=== PATIENT | male | born 1990 | race Caucasian/White ===

== ENCOUNTER 2021-10-16 17:32 | Emergency (ER) | payer OTHER, SELFPAY ==
--- NOTE | ~2021-10-16 | XR_ITS ---
XR hand RT min 3V DATE: 10/16/2021 17:51 INDICATION: Right hand pain TECHNIQUE: 3 views COMPARISON: None FINDINGS: No fracture or dislocation, periosteal reaction or bone destruction, erosive change or vera drocalcinosis. Joint spaces are preserved. IMPRESSION: Negative Reviewed, dictated and finalized at location A. IMPRESSION: Negative
[2021-10-16 17:34] VITALS: BP 146/79; PULSE 98; RESP 18; TEMP 36.8; O2SAT 100
--- NOTE | 2021-10-16 18:23 | ED_ITS ---
HPI - Extremity Injury (Upper) General Chief Complaint: Extremity Injury, Upper Stated Complaint: hand pain Time Seen by Provider: 10/16/21 17:39 Source: RN notes reviewed History of Present Illness HPI narrative: Patient presents emergency room from home for right hand pain. Patient states that 2 days ago he was working on his car when the brown came down and smashed his hand between the brown and his engine patient notes pain over his right dorsal hand at the base of the third digit he denies any other trauma or injury denies any numbness or tingling states it does hurt to make a full fist but is able to make a full fist Related Data Allergies Allergy/AdvReac Type Severity Reaction Status Date / Time No Known Drug Allergies Allergy Unknown none Verified 09/22/17 08:55 Review of Systems Review of Systems: Gen.: Denies fevers or chills Musculoskeletal: See HPI Neuro: Denies numbness, tingling, weakness Skin: Denies rash Endo: Denies DM PMFSH Past Medical History Medical History (Updated 10/16/21 @ 18:26 by Jason Elise DO) Patient denies significant medical history Social History Social History Smoking status: Former smoker Smoking end date: 07/11/14 Exam Narrative: APPEARANCE: No acute distress, nontoxic, resting in bed Eyes: EOMI HEENT: Normocephalic, atraumatic, RESPIRATORY: No respiratory distress MUSCULOSKELETAl: Tender palpation of the right dorsal hand at the base of the third digit over the MCP joint, mild swelling no ecchymosis full flexion- extension of all 5 MCP and IP joints, radial pulse 2+ neurovascular intact NEURO: Awake and alert. Following commands, speech normal, no focal deficits SKIN:: Warm, dry. Normal Color no rash or lesions Course Course Emergency Course: Discussed with patient results of workup and diagnosis. Discussed need for follow-up with primary care, proper use of medication, and reasons to return to the emergency department. Patient understands and agrees to current treatment plan Vital Signs Vital signs: Vital Signs Temperature 98.2 F 10/16/21 17:34 Pulse Rate 98 10/16/21 17:34 Respiratory Rate 18 10/16/21 17:34 Blood Pressure 146/79 H 10/16/21 17:34 Pulse Oximetry 100 10/16/21 17:34 Temperature 98.2 F 10/16/21 17:34 Pulse Rate 98 10/16/21 17:34 Respiratory Rate 18 10/16/21 17:34 Blood Pressure 146/79 H 10/16/21 17:34 Pulse Oximetry 100 10/16/21 17:34 MDM - Extremity Injury (Upper) Imaging Data Radiologist's impression: ITS Impressions Hand X-Ray 10/16/21 18:12 IMPRESSION: Negative Discharge Plan Discharge Clinical Impression: Contusion of hand, right Patient Disposition: Home, Self-Care Condition: Stable Instructions: Antibiotic Form, Crush Injury (ED) Additional Instructions: Return for his knee pain numbness or tingling in the extremities or any other symptoms of concern Prescriptions: New ibuprofen [IBU] 600 mg tablet 600 mg PO Q6H PRN (Reason: pain) Qty: 20 RF: 0 Follow-up/Referrals: Konrad Mtz MD [Primary Care Provider] - 2 Days Time of Disposition: 18:27
== END 2021-10-16 19:23 | disposition home or self-care (01) ==
PROVIDERS: Emergency Provider Emergency Medicine; PCP Family Medicine
DX: S60.221A Contusion of right hand, initial encounter (principal); Z87.891 Personal history of nicotine dependence; W23.0XXA Caught, crushed, jammed, or pinched between moving objects, initial encounter
CPT/HCPCS: 73130; 99283